=== PATIENT | male | born 1990 | race African-American/Black ===

== ENCOUNTER 2019-06-06 12:55 | Emergency (ER) | payer SELFPAY ==
[~2019-06-06] VITALS: Ht 182.9 cm; Wt 113.0 kg
[2019-06-06 18:26] VITALS: BP 109/61
== END 2019-06-06 21:56 | disposition left against medical advice (07) ==
LOC: ER 12:55
DX: R07.89 Other chest pain (principal)
CPT/HCPCS: 71045; 93005; 99283

== ENCOUNTER 2019-08-28 05:45 | Emergency (ER) | payer SELFPAY ==
[~2019-08-28] VITALS: Ht 188 cm; Wt 127.0 kg
[2019-08-28 06:29] LABS: HEMATOCRIT. 42.8 % (42.0-52.0); HEMOGLOBIN. 14.3 g/dL (14.0-18.0); MEAN CORPUSCULAR HEMOGLOBIN 31.5 pg (28.0-32.0); MEAN CORPUSCULAR VOLUME 94.2 fL (80.0-94.0); PLATELET 225 x1000/uL (130-400); RED BLOOD CELL COUNT 4.54 mill/uL (4.7-6.1); RED CELL DISTRIBUTION WIDTH 12.9 % (11.6-14.6)
[2019-08-28 06:38] LABS: CHLORIDE 108 mEq/L (98-107)
[2019-08-28 06:42] LABS: ETHANOL BLOOD < 10 mg/dL
[2019-08-28 07:01] LABS: CLARITY URINE CLEAR (CLEAR); COLOR URINE DARK YELLOW (YELLOW); KETONES URINE TRACE (NEGATIVE); LEUKOCYTE ESTERASE URINE TRACE (NEGATIVE); NITRITE URINE NEGATIVE (NEGATIVE); OCCULT BLOOD URINE NEGATIVE (NEGATIVE); PROTEIN URINE 1+ (NEGATIVE); SPECIFIC GRAVITY URINE 1.028 (1.005-1.030)
[2019-08-28 07:06] LABS: PLATELET ESTIMATE NORMAL
[2019-08-28 07:40] LABS: *AMPHETAMINES SCREEN URINE PRESUMTIVE POSITIVE (NEGATIVE); *BARBITURATES SCREEN URINE NEGATIVE (NEGATIVE); *BENZODIAZEPINES SCREEN URINE NEGATIVE (NEGATIVE); *COCAINE SCREEN URINE NEGATIVE (NEGATIVE)
[2019-08-28 07:41] LABS: CANNABINOID URINE SCREEN PRESUMTIVE POSITIVE (NEGATIVE); METHADONE URINE SCREEN NEGATIVE (NEGATIVE); OPIATES URINE SCREEN NEGATIVE (NEGATIVE); PHENCYCLIDINE URINE SCREEN NEGATIVE (NEGATIVE)
[2019-08-28 13:22] VITALS: BP 119/54
== END 2019-08-28 13:30 | disposition short-term general hospital (02) ==
LOC: ER 05:45
DX: F15.129 Other stimulant abuse with intoxication, unspecified (principal); R45.851 Suicidal ideations; F20.9 Schizophrenia, unspecified; F31.9 Bipolar disorder, unspecified; J45.909 Unspecified asthma, uncomplicated
CPT/HCPCS: 36415; 80053; 80305; 80307; 80320; 80329; 81003; 85025; 99285; G0480

== ENCOUNTER 2021-07-28 22:36 | Emergency (ER) | payer OTHER ==
[~2021-07-28] VITALS: Ht 182.9 cm; Wt 114.0 kg
[2021-07-29] MEDS ORDERED: IBUPROFEN 400MG TABLET PO ONE (00:45)
[2021-07-29 00:53] VITALS: BP 130/80
== END 2021-07-29 00:55 | disposition home or self-care (01) ==
LOC: ER 22:36
DX: D17.9 Benign lipomatous neoplasm, unspecified (principal); J45.909 Unspecified asthma, uncomplicated
CPT/HCPCS: 99283

== ENCOUNTER 2021-11-21 23:43 | Emergency (ER) | payer OTHER ==
[~2021-11-21] VITALS: Ht 188 cm; Wt 122.0 kg
[2021-11-21 23:46] VITALS: BP 167/88
== END 2021-11-22 03:58 | disposition left against medical advice (07) ==
LOC: ER 23:43
DX: Z53.21 Procedure and treatment not carried out due to patient leaving prior to being seen by health care provider (principal)